=== PATIENT | female | born 1990 | race Caucasian/White ===

== ENCOUNTER 2016-07-30 08:34 | Observation (INO) | payer SELFPAY ==
[~2016-07-30] VITALS: Ht 149.9 cm; Wt 60.8 kg
[2016-07-30] MEDS ORDERED: LACTATED RINGERS 1,000 ML IV SCH (09:30)
[2016-07-30 10:36] LABS: CLARITY URINE CLEAR (CLEAR); COLOR URINE YELLOW (YELLOW); GLUCOSE URINE NEGATIVE (NEGATIVE); KETONES URINE NEGATIVE (NEGATIVE); LEUKOCYTE ESTERASE URINE TRACE (NEGATIVE); NITRITE URINE NEGATIVE (NEGATIVE); OCCULT BLOOD URINE NEGATIVE (NEGATIVE); PH URINE 6.5 (4.5-8.0); PROTEIN URINE NEGATIVE (NEGATIVE); UROBILINOGEN URINE 0.2 E.U./dL (0.2-1.0)
[2016-07-30 10:49] LABS: RBC URINE 0-2 /hpf (0-2); SQUAMOUS EPITHELIAL CELL URINE 3+ /lpf (RARE/1+)
[2016-07-30 10:50] LABS: BACTERIA URINE 2+
[2016-07-30 11:14] LABS: *AMPHETAMINES SCREEN URINE NEGATIVE (NEGATIVE); *BARBITURATES SCREEN URINE NEGATIVE (NEGATIVE); *BENZODIAZEPINES SCREEN URINE NEGATIVE (NEGATIVE); *COCAINE SCREEN URINE NEGATIVE (NEGATIVE); CANNABINOID URINE SCREEN NEGATIVE (NEGATIVE); ECSTASY MDMA SCREEN URINE NEGATIVE (NEGATIVE); METHADONE URINE SCREEN NEGATIVE (NEGATIVE); OPIATES URINE SCREEN NEGATIVE (NEGATIVE); PHENCYCLIDINE URINE SCREEN NEGATIVE (NEGATIVE)
[2016-07-30] MEDS ORDERED: CEFAZOLIN 2,000 MG in DEXT 5% WATER 100 ML IV SCH (11:45)
[2016-07-30] MEDS ORDERED: PREN-88 PO (12:20)
== END 2016-07-30 12:58 | disposition home or self-care (01) ==
LOC: L&D 08:34 → 7EST PP/OB 10:21 → L&D 10:23
PROVIDERS: ADMIT Obstetrics & Gynecology; ATTEND Obstetrics & Gynecology
DX: O26.899 Other specified pregnancy related conditions, unspecified trimester (principal); R10.9 Unspecified abdominal pain; Z3A.00 Weeks of gestation of pregnancy not specified
CPT/HCPCS: 80305; 81001; 96361; 96365; 99281; G0378; J0690; 96360; J7060; J7120

== ENCOUNTER 2016-08-01 00:56 | Observation (INO) | payer OTHER ==
[~2016-08-01] VITALS: Ht 149.9 cm; Wt 63.5 kg
[~2016-08-01 00:56] MED LIST: PREN-88 PO
[2016-08-01] MEDS ORDERED: ACETAMINOPHEN 500MG TABLET PO ONE (02:00)
[2016-08-01] MEDS ORDERED: TERBUTALINE SULFATE 1MG/ML VIAL SUBCUT PRN (02:00)
[2016-08-01] MEDS ORDERED: LACTATED RINGERS 1,000 ML IV SCH (02:00)
== END 2016-08-01 03:40 | disposition home or self-care (01) ==
LOC: L&D 00:56
PROVIDERS: ADMIT Obstetrics & Gynecology; ATTEND Obstetrics & Gynecology
DX: O26.899 Other specified pregnancy related conditions, unspecified trimester (principal); Z3A.00 Weeks of gestation of pregnancy not specified
CPT/HCPCS: 96372; G0378; J3105; J7120; 96360

== ENCOUNTER 2024-03-05 20:46 | Emergency (ER) | payer SELFPAY ==
[~2024-03-05] VITALS: Ht 149.9 cm; Wt 57.3 kg
[2024-03-05] MEDS: DEXAMETHASONE 10 MG/ML VIAL PO ONE (22:15)
[2024-03-05 23:36] VITALS: PULSE 78; RESP 24; O2SAT 99
[2024-03-05] MEDS: IPRATROPIUM/ALBUTEROL 0.5-3(2.5)MG/3ML NEB HHN ONE (23:36)
[2024-03-06] MEDS ORDERED: ALBU90AE INH (00:32)
[2024-03-06 01:24] VITALS: BP 120/71; PULSE 73; RESP 20; TEMP 36.78072; O2SAT 99
== END 2024-03-06 01:29 | disposition home or self-care (01) ==
LOC: ER 20:46
DX: J45.901 Unspecified asthma with (acute) exacerbation (principal); I10 Essential (primary) hypertension; Z79.52 Long term (current) use of systemic steroids
CPT/HCPCS: 71045; 94640; 93005; 99285; J1100; Z7610 ×3